=== PATIENT | female | born 1945 | race Hispanic/Latino ===

== ENCOUNTER 2018-10-12 08:20 | Outpatient (CLI) | payer MEDICARE | END 2018-10-12 08:21 | disposition home or self-care (01) | LOC: C.CTH 08:20 | DX: R10.30 Lower abdominal pain, unspecified (principal); R19.4 Change in bowel habit; R11.2 Nausea with vomiting, unspecified ==

== ENCOUNTER 2018-10-23 09:40 | Outpatient (CLI) | payer MEDICARE | END 2018-10-23 09:41 | disposition home or self-care (01) | LOC: C.LAB 09:40 → C.PAT 09:41 ==

== ENCOUNTER 2018-10-29 05:43 | Observation (INO) | payer MEDICARE | END 2018-10-30 10:40 | disposition home or self-care (01) | LOC: C.SDS 05:43 → C.9S 09:58 → C.6T 13:02 | DX: K35.20 Acute appendicitis with generalized peritonitis, without abscess (principal) ==